=== PATIENT | female | born 1985 | race Caucasian/White ===

== ENCOUNTER 2016-11-22 17:16 | Emergency (ER) | payer SELFPAY ==
[2016-11-22 17:16] VITALS: BMI 30.9
[2016-11-22 17:30] VITALS: BP 95/65; PULSE 64; RESP 18; TEMP 98; O2SAT 99
--- NOTE | 2016-11-22 18:01 | ED PDOC ---
Arrival/HPI - General Chief Complaint: Female Genitourinary Time Seen by Provider: 11/22/16 17:57 Historian: Patient - History of Present Illness Narrative History of Present Illness (Text): 11/22/16 17:58 31yo female with no PMHx who present to ED requesting the removal of her Merina. Patient states merina was placed by her PRIMARY TEACHER 2years ago. she started having vaginal pain a month ago. Came to ED today to remove the Merina. States is uncomfortable. Denies urinary frequency, dysuria, hematuria, abdominal pain, nausea, vomiting, fever, chills, any other complaint. Past Medical History - Provider Review Nursing Documentation Reviewed: Yes - Infectious Disease Hx of Infectious Diseases: None - Psychiatric Hx Substance Use: No - Surgical History Hx Section: Yes Other/Comment: control implant - Anesthesia Hx Anesthesia: Yes Hx Anesthesia Reactions: No Hx Malignant Hyperthermia: No Family/Social History - Physician Review Nursing Documentation Reviewed: Yes Family/Social History: Unknown Family HX Smoking Status: Never Smoked Hx Alcohol Use: No Hx Substance Use: No Allergies/Home Meds Allergies/Adverse Reactions: Allergies No Known Allergies Allergy (Verified 11/22/16 17:29) Review of Systems - Physician Review All systems were reviewed & negative as marked: Yes - Review of Systems Constitutional: Normal Eyes: Normal ENT: Normal Respiratory: Normal Cardiovascular: Normal Gastrointestinal: Normal Genitourinary Female: Other (Removal of Merina) Musculoskeletal: Normal Skin: Normal Neurological: Normal Endocrine: Normal Hemo/Lymphatic: Normal Psychiatric: Normal Physical Exam Vital Signs Reviewed: Yes Vital Signs Temp Pulse Resp BP Pulse Ox 11/22/16 17:29 98.0 F 64 18 95/65 L 99 Temperature: Afebrile Blood Pressure: Normal Pulse: Regular Respiratory Rate: Normal Appearance: Positive for: Well-Appearing, Non-Toxic, Comfortable Pain Distress: None Mental Status: Positive for: Alert and Oriented X 3 - Systems Exam Head: Present: Atraumatic, Normocephalic Pupils: Present: PERRL Extroacular Muscles: Present: EOMI Conjunctiva: Present: Normal Mouth: Present: Moist Mucous Membranes Neck: Present: Normal Range of Motion Respiratory/Chest: Present: Clear to Auscultation, Good Air Exchange. No: Respiratory Distress, Accessory Muscle Use Cardiovascular: Present: Regular Rate and Rhythm, Normal S1, S2. No: Murmurs Abdomen: Present: Normal Bowel Sounds. No: Tenderness, Distention, Peritoneal Signs Genitourinary/Pelvic Exam: Present: Normal External Genitalia. No: Vaginal Discharge, Vaginal Bleeding, Vaginal Lesions, Adenexal Tenderness, Cervical Motion Tendernes, Odor Back: Present: Normal Inspection Upper Extremity: Present: Normal Inspection. No: Cyanosis, Edema Lower Extremity: Present: Normal Inspection. No: Edema Neurological: Present: GCS=15, CN II-XII Intact, Speech Normal Skin: Present: Warm, Dry, Normal Color. No: Rashes Psychiatric: Present: Alert, Oriented x 3, Normal Insight, Normal Concentration Medical Decision Making ED Course and Treatment: 11/23/16 00:37 PT have a PRIMARY TEACHER, who placed the Merina and was advised to f/u with her PRIMARY TEACHER for the removal. Otherwise advised TRT ED for any new symptoms. Disposition/Present on Arrival - Present on Arrival Any Indicators Present on Arrival: No History of DVT/PE: No History of Uncontrolled Diabetes: No Urinary Catheter: No History of Decub. Ulcer: No History Surgical Site Infection Following: None - Disposition Have Diagnosis and Disposition been Completed?: Yes Diagnosis: Vaginal discomfort Disposition: HOME/ ROUTINE Disposition Time: 18:05 Patient Plan: Discharge Condition: STABLE Additional Instructions: Follow up with a PRIMARY TEACHER Return to ED for any new or worsening symptoms Referrals: [facility] [Outside] - Follow up with primary
== END 2016-11-22 18:05 | disposition home or self-care (01) ==
LOC: ED 17:16
DX: R10.2 Pelvic and perineal pain (principal)

== ENCOUNTER 2018-02-03 03:43 | Emergency (ER) | payer SELFPAY ==
[2018-02-03 03:43] VITALS: BMI 30.9
== END 2018-02-03 04:10 | disposition left against medical advice (07) ==
LOC: ED 03:43
DX: Z02.89 Encounter for other administrative examinations (principal); R50.9 Fever, unspecified

== ENCOUNTER 2018-04-25 03:19 | Emergency (ER) | payer BC ==
[2018-04-25 03:20] VITALS: BMI 30.9
[2018-04-25] MEDS ORDERED: Ophthalmic Irrigation, Soln OU STA (03:42)
--- NOTE | 2018-04-25 03:42 | ED PDOC ---
Arrival/HPI - General Time Seen by Provider: 04/25/18 03:21 - History of Present Illness Narrative History of Present Illness (Text): 04/25/18 03:39 pt presents to ed c/o bilateral eye irritation from cleaning the floor with ammonia at 8 pm , pt states getting worst , no loss of vision or fever or chills Past Medical History - Provider Review Nursing Documentation Reviewed: Yes - Infectious Disease Hx of Infectious Diseases: None - Psychiatric Hx Substance Use: No - Surgical History Hx Section: Yes Other/Comment: control implant - Anesthesia Hx Anesthesia: Yes Hx Anesthesia Reactions: No Hx Malignant Hyperthermia: No Family/Social History - Physician Review Nursing Documentation Reviewed: Yes Family/Social History: No Known Family HX Smoking Status: Never Smoked Hx Alcohol Use: No Hx Substance Use: No Allergies/Home Meds Allergies/Adverse Reactions: Allergies No Known Allergies Allergy (Verified 04/25/18 03:30) Home Medications: Home Meds Medication Instructions Recorded Confirmed No Known Home Med 04/25/18 04/25/18 Review of Systems - Review of Systems Constitutional: Normal Eyes: Eye Pain (irritation to both eyes) ENT: Normal Respiratory: Normal Physical Exam Vital Signs Temp Pulse Resp BP Pulse Ox 04/25/18 03:29 98.2 F 88 18 133/73 95 Temperature: Afebrile Blood Pressure: Normal Pulse: Regular Respiratory Rate: Normal Appearance: Positive for: Well-Appearing, Non-Toxic, Comfortable Pain Distress: None Mental Status: Positive for: Alert and Oriented X 3 - Systems Exam Head: Present: Atraumatic, Normocephalic Pupils: Present: PERRL Extroacular Muscles: Present: EOMI Conjunctiva: Present: Injected, Other (no fb or fluroscein uptake) Mouth: Present: Moist Mucous Membranes Neck: Present: Normal Range of Motion Respiratory/Chest: Present: Clear to Auscultation, Good Air Exchange. No: Respiratory Distress, Accessory Muscle Use Cardiovascular: Present: Regular Rate and Rhythm, Normal S1, S2. No: Murmurs Abdomen: No: Tenderness, Distention, Peritoneal Signs Back: Present: Normal Inspection Upper Extremity: Present: Normal Inspection. No: Cyanosis, Edema Lower Extremity: Present: Normal Inspection. No: Edema Neurological: Present: GCS=15, CN II-XII Intact, Speech Normal Skin: Present: Warm, Dry, Normal Color. No: Rashes Psychiatric: Present: Alert, Oriented x 3, Normal Insight, Normal Concentration Disposition/Present on Arrival - Present on Arrival Any Indicators Present on Arrival: No History of DVT/PE: No History of Uncontrolled Diabetes: No Urinary Catheter: No History of Decub. Ulcer: No History Surgical Site Infection Following: None - Disposition Have Diagnosis and Disposition been Completed?: Yes Diagnosis: Irritation of both eyes Disposition: HOME/ ROUTINE Disposition Time: 04:15 Condition: IMPROVED Discharge Instructions (ExitCare): Chemical Eye Injury (DC) Additional Instructions: apply ointment 3 times a day to both eyes follow up with eye doctor Referrals: Terry Shah MD [Staff Provider] - Follow up with primary Forms: [employer] ([place])
[2018-04-25] MEDS ORDERED: Tobramycin 0.3% OPH OINT OU STA (03:45)
[2018-04-25 10:51] VITALS: BP 133/73; PULSE 88; RESP 18; TEMP 98.2; O2SAT 95
== END 2018-04-25 04:16 | disposition home or self-care (01) ==
LOC: ED 03:19
DX: H57.89 Other specified disorders of eye and adnexa (principal)